=== PATIENT | male | born 1955 | race Caucasian/White ===

== ENCOUNTER 2025-01-14 02:19 | Emergency (ER) | payer MEDICARE, OTHER, SELFPAY ==
--- OUTSIDE RECORDS SUMMARY | 2025-01-14 02:22 | XMS_ITS | Clinical Summary ---
Author Organization [facility] Address [address] [place] [address] Care Team Providers Care Aerodynamic Consultant Name Role Phone Elsewhere, Pcp Primary Care Provider Unavailabl e Source Comments Patient records contain information from all sites at [facility]. For routine questions regarding patient records, call [phone] during business hours, M-F 8:00 AM - 5:00 PM Central Time. Record requests for emergency care only can be directed to [phone] at any time.[facility] Allergies Active Allergy Reactions Criticality Noted Date Comments Pollen Extracts Cough 09/06/2022 Medications * This document contains information received from the source organization and may not represent a complete record from that organization. lisinopriL (PRINIVIL,ZESTR IL) 20 mg tablet Take 20 mg by mouth daily. 3 Active metoprolol succinate (TOPROL-XL) 50 mg 24 hr tablet Take 50 mg by mouth at bedtime. 3 Active hydroCHLOROthia zide (HYDRODIURIL) 12.5 mg tablet Take 12.5 mg by mouth daily. 3 Active atorvastatin (LIPITOR) 20 mg tablet Take 20 mg by mouth at bedtime. 3 Active cetirizine (ZyrTEC) 10 mg tablet Take 10 mg by mouth daily. 3 Active cholecalciferol (VITAMIN D3) 25 mcg (1,000 Unit) capsule Take 1,000 Units by mouth daily. 5 Active DOCOSAHEXAENOIC ACID ORAL Take 1 capsule by mouth daily. 7 Active diphenhydrAMINE -acetaminophen (TYLENOL PM) 25-500 mg per tablet Take 1 tablet by mouth at bedtime. 3 Active co-enzyme Q-10 (CO Q-10) 100 mg capsule Take 100 mg by mouth daily. 0 Active resveratroL 50 mg capsule Take 50 mg by mouth daily. 0 Active multivitamin tablet Take 1 tablet by mouth daily. [address] Active aspirin [address] tablet Take 81 mg by mouth daily. 1 Active acetaminophen (TYLENOL) 500 mg tablet Take 2 tablets (1,000 mg total) by mouth every 6 (six) hours as needed for pain. 3 Active tadalafiL (CIALIS) 5 mg tablet TAKE 1-4 TABLETS BY MOUTH DAILY. TAKE ONE TABLET ONCE DAILY WITH AN ADDITIONAL 1-3 TABLETS NEEDED FOR ERECTILE FUNCTION. NO MORE THAN 4 TABLETS IN 24HRS. 330 tablet 4 Active Hospital, Clinic, or Other Facility Administered Medication Ordered Dose Route Frequency Start Date End Date Status lidocaine 10 mg/mL (1 %) injection 30 mL (XYLOCAINE) 30 mL inj Once 12/02/2022 Active Active Problems Problem Noted Date Diagnosed Date Hypertension Essential Primary 02/16/2023 Hyperlipidemia 02/16/2023 Atrial Fibrillation Personal History 02/16/2023 Aortic Ectasia 02/16/2023 Catheter Ablation For Conduction Pathway Status Post 02/16/2023 Obstructive Sleep Apnea Adult 02/16/2023 Personal History Of Infectio us And Parasitic Disease (COVID-19) 02/16/2023 Obesity Body Mass Index 30-39.9 Adult 02/16/2023 Primary Malignant Neoplasm Of Prostate 3 Family History Medical History Relation Name Comments Hypertension Brother Jc Wong Coronary artery disease Father Arcadio Wong Lung cancer Father Arcadio Wong heavy smoker Hypertension Mother Shira Wong Hypertension Sister Trish Calle Relation Name Status Comments Brother Jc Wong Father Arcadio Wong Mother Shira Wong Sister Trish Calle Social History Tobacco Use Types Packs/Day Years Used Date Smoking Tobacco: Never Passive Smoke Exposure: Never Smokeless Tobacco: Never Alcohol Use Standard Drinks/Week Comments Not Currently 2 (1 standard drink = 0.6 oz pur e alcohol) Hunger Vital Sign Answer Date Recorded Within the past 12 months, y ou worried that your food would run out before you got the money to buy more. Never true 01/02/20 23 Within the past 12 months, t he food you bought just didn't last and you didn't have money to get more. Never true 01/01/2023 PRAPARE - Transportation Answer Date Re corded In the past 12 months, has l ack of transportation kept you from medical appointments or from getting medications? No 12/16 In the past 12 months, has l ack of transportation kept you from meetings, work, or from getting things needed for daily living? No 01/01/2023 Housing Stability Answer Date Recorded What is your living situation today? I have a [facility] place to live 01/01/2023 Sex and Gender Information Value Date Recorded Sex Assigned at Male 10/11/2022 5:52 PM CDT Legal Sex Male 5:12 PM CDT Gender Identity Male 10/11/2022 5:52 PM CDT Sexual Orientation Straight 10/11/2022 5: 52 PM CDT Last Filed Vital Signs Vital Sign Reading Time Taken Comments Blood Pressure 108/70 02/18/2023 11:26 AM CDT Pulse 65 02/18/2023 11:26 AM CDT Temperature 36.9 C (98.4 F) 02/18/2023 11:26 AM CDT Respiratory Rate 15 02/18/2023 11:26 AM CDT Oxygen Saturation 98% 02/18/2023 11:26 AM CDT Inhaled Oxygen Concentration - - Weight 107 kg (235 lb 0.2 oz) 02/17/2023 10:46 P M CDT Height 179 cm (5' 10.47) 02/17/2023 10:16 AM CD T Body Mass Index 33.27 02/17/2023 10:16 AM CDT Plan of Treatment Health Maintenance Due Date Last Done Comments CT Colonography 1955 Cologuard 1955 FIT 1955 Hepatitis C Screening 1955 DTaP,Tdap,and Td Vaccines (2 - Td or Tdap) 01/05/2022 01/06/2012, 12/09/2002 Office Visit for Blood Pressure Check / Re-check 02/17/2024 02/16/2023 Depression Screening (Annual PHQ-2) 04/17/2024 Fall Risk Screen (Annual) 04/17/2024 Creatinine Level (Kidney Function Test) 12/05/2024 12/06/2023, 02/18/2023, 02/16/2023, Additional history exists Potassium Level 12/05/2024 12/06/2023, 0 07/2022, 02/16/2023, Additional history exists Sodium Level 12/05/2024 12/06/2023, 07/2022, 02/16/2023, Additional history exists COVID-19 Vaccine ( season) 2024 01/07/2022, 02/12/2021, 07/25/2020, Additional history exists Influenza Vaccine (#1) 2024 , 02/12/2021, 02/03/2020, Additional history exists Fasting Glucose for Diabetes Screening 12/05/2026 12/06/2023, 02/18/2023, 02/16/2023, Additional history exists Lipid (Cholesterol) Screening 12/05/2028 12/06/2023, 08/25/2022, 08/09/2021, Additional history exists Colonoscopy 02/05/2034 02/06/2024, 04/06/2018 Colorectal Cancer Screening 02/05/2034 Zoster Vaccines Completed 11/20/2019, 05/2018, 11/05/2010 Pneumococcal vaccine (50+ years) Completed 08/26/2022 IPV Vaccines Aged Out No longer eligi ble based on patient's age to complete this topic Medical Devices Implanted Type Area Metal Sorter Device Identifier Shelf Expiration Date Model / Serial / Lot Orquidea Morales [id number] Implanted:Qty : 1 on 02/17/2023 by Coy Vargas M.D. at [facility] [employer] e.g. pins/screws/ rods [employer] [facility] [id number] 11/21/2024 [id number] / / [id number] Orquidea Morales [id number] Implanted:Qty : 1 on 02/17/2023 by Coy Vargas M.D. at [facility] [employer] e.g. pins/screws/ rods [employer] [id number] 11/21/2024 [id number] / / [id number] Clp Hmol Plmr Lg - [id number] Implanted:Qty : 1 on 02/17/2023 by Coy Vargas M.D. at [facility] [employer] e.g. pins/screws/ rods [employer] [id number] 05/31/2027 [id number] / / [id number] Clp Hmol Plmr Lg - [id number] Implanted:Qty : 1 on 02/17/2023 by Coy Vargas M.D. at [facility] [employer] e.g. pins/screws/ rods [employer] [id number] 05/31/2027 [id number] / / [id number] Clp Hmol Plmr Lg - [id number] Implanted:Qty : 1 on 02/17/2023 by Coy Vargas M.D. at [facility] [employer] e.g. pins/screws/ rods [employer] [id number] 05/31/2027 [id number] / / [id number] Clp Hmol Plmr Lg - [id number] Implanted:Qty : 1 on 02/17/2023 by Coy Vargas M.D. at [facility] [employer]. pins/screws/ rods [employer] [id number] 05/16/2027 [id number] / / [id number] Clp Hmol Plmr Lg - [id number] Implanted:Qty : 1 on 02/17/2023 by Coy Vargas M.D. at [facility] [employer] e.g. pins/screws/ rods [employer] [id number] 03/29/2027 [id number] / / [id number] Clp Hmol Plmr Lg - [id number] Implanted:Qty : 1 on 02/17/2023 by Coy Vargas M.D. at [facility] [employer] e.g. pins/screws/ rods [employer] [id number] 05/24/2027 [id number] / / [id number] Procedures Procedure Name Priority Date/Time Associated Diagnosis Comments BASIC METABOLIC PANEL, S/P Routine 02/18/2023 12:35 AM CDT from Last 3 Months or Most Recently Relevant to Health Maintenance Results * (ABNORMAL) Basic Metabolic Panel (02/18/2023 12:35 AM CDT) Potassium, S 4.4 3.6 - 5.2 mmol/L 02/18/2023 1:32 AM CDT DTL Sodium, S 139 135 - 145 mmol/L 02/18/2023 1:32 AM CDT DTL Chloride, S 101 98 - 107 mmol/L 02/18/2023 1:32 AM CDT DTL Bicarbonate, S 24 22 - 29 mmol/L 02/18/2023 1:32 AM CDT DTL Anion Gap 14 7 - 15 02/18/2023 1:32 AM CDT DTL BUN (Blood Urea Nitrogen), S 18 8 - 24 mg/dL 02/18/2023 1:32 AM CDT DTL Creatinine 1.15 0.74 - 1.35 mg/dL 02/18/2023 1:32 AM CDT DTL Estimated GFR (eGFR) 70 >=60 mL/min/BSA 02/18/2023 1:32 AM CDT DTL Comment: Estimated GFR calculated using the 2020 CKD_EPI creatinine equation. Calcium, Total, S 9.1 8.8 - 10.2 mg/dL 02/18/2023 1:32 AM CDT DTL Glucose, S 194(H) 70 - 140 mg/dL 02/18/2023 1:32 AM CDT DTL Blood (Blood, Venous) 02/18/2023 12:35 AM CDT 02/18/2023 1:16 AM CDT us Sailaja Leslie M.D. LAB BLOOD ADD-ON Final Re sult [facility] [employer] [facility] [address] [place] [address], [facility] DTL [facility] [employer] [facility] [employer] [facility] [address] [place] [address] from Last 3 Months or Most Recently Relevant to Health Maintenance Insurance [employer] MEDICARE Care Teams Aerodynamic Consultant Relationship Specialty Start Date End Date Elsewhere, Pcp PCP - General Internal Medicine 09/06/22
--- OUTSIDE RECORDS SUMMARY | 2025-01-14 02:22 | XMS_ITS | Clinical Summary ---
Author Organization [facility] Address [address] [place] [id number] Care Team Providers Care Integrity Analyst Name Role Phone Rosalba Jordan DO Primary Care Provider [phone] Allergies Active Allergy Reactions Criticality Noted Date Comments Unlisted Allergen (Include Detail In Comments) 02/14/2007 seasonal allergies-eyes water and sneezing Medications MULTIVITAMIN TAB take 1 tablet by oral route once daily with food 0 01/24/20 07 Active cetirizine (ZYRTEC) 10 mg tablet Take 1 tablet by mouth once daily. 0 02/23/20 13 Active cholecalciferol (VITAMIN D-3) 2,000 unit capsule Take 2,000 Units by mouth once every other day. 0 08/09/19 15 Active jeoae-2-qao-epa-d pa-fish oil (OMEGA-3 2100) 1,050-1,200 mg cap capsule Take 1 capsule by mouth once daily. 0 12/17/19 17 Active MEDICAL SUPPLY, MISCELLANEOUS (GRADUATED COMPRESSION STOCKINGS)Indicat ions:Varicose veins of legs For personal use. Length: calf Strength: 16-20mmhg 3 Packet 2 12/17/19 17 Active coenzyme q10 100 mg cap Take 1 capsule by mouth once daily. 0 06/11/19 20 Active resveratrol 50 mg cap Take 50 mg by mouth once daily. 0 08/07/19 20 Active aspirin (ECOTRIN) 81 mg enteric coated tabletIndications :PAF (paroxysmal atrial fibrillation) (HC) Take 1 Tablet (81 mg) by mouth once daily. 0 08/20/19 21 Active diphenhydrAMINE-a cetaminophen 25-500 mg (Tylenol PM Extra Strength) 25-500 mg tablet Take 1 Tablet by mouth at bedtime if needed. Max acetaminophen dose: 4000mg in 24 hrs. 0 07/06/19 Active medication order composerIndicatio ns:Chronic constipation Calm magnesium 350mg per serving. Taking as needed for constipation. 12/06/19 Active lisinopriL 20 mg tabletIndications :Essential hypertension with goal blood pressure less than 130/80 Take 1 Tablet (20 mg) by mouth once daily. 90 Tablet 10/15/19 25 Active hydroCHLOROthiazi de 12.5 mg tabletIndications :Essential hypertension with goal blood pressure less than 130/80 Take 1 Tablet (12.5 mg) by mouth once daily. 90 Tablet 10/15/19 25 Active atorvastatin 20 mg tabletIndications :Essential hypertension with goal blood pressure less than 130/80 Take 1 Tablet (20 mg) by mouth once daily. 90 Tablet 10/15/19 25 Active metoprolol succinate 50 mg sustained-release tabletIndications :Atrial fibrillation with rapid ventricular response (HC) Take 1 Tablet (50 mg) by mouth once daily. 90 Tablet 10/15/19 Active CPAPIndications:O SA (obstructive sleep apnea) CPAP machine for home use at pressure 7-11 cmw, starting pressure 6 (can increase if needed)nasal mask x1/3month with nasal cushion x2/mo 1 Each 10/15/19 25 Active tirzepatide (weight loss) (ZEPBOUND) 2.5 mg/0.5 mL subcutaneous vialIndications:O besity (BMI 30.0-34.9),Severe obstructive sleep apnea Inject 0.5 mL (2.5 mg) subcutaneous once weekly. 4 Each 11/30/19 25 Active tirzepatide (weight loss) (ZEPBOUND) 5 mg/0.5 mL subcutaneous vialIndications:O besity (BMI 30.0-34.9),Severe obstructive sleep apnea Inject 0.5 mL (5 mg) subcutaneous once weekly. 4 Each 11/30/19 25 Active Active Problems Patient Care Coordination No te Formatting of this note migh t be different from the original. HF/Structural/Prevention Research Eligibility Review Date: 04/26/19 Upcoming Visit Location: [x] [facility] [] Outreach Age: 63 y.o. Insurance: [] Medicare [x] Not Medicare [] Uncertain Comments: HF: DNQ Structural: DNQ Prevention: Diabetes: Vesalius:Potential No d/t - statin dose and no inclusion 104 Prominent:No d/t Rhapsody: No recurrent pericarditis Problem Noted Date Diagnosed Date Prostate cancer 12/06/2023 Cancer Staging:Clinical: cN0, cM0, Grade Group: 3 - Signed by Rosalba Jordan DO on 12/06/2023 Paroxysmal A-fib 12/06/2023 CKD (chronic kidney disease) stage 3, GFR 30-59 ml/min 04/24/2019 Obesity (BMI 30-39.9) 04/24/2019 MARIALUISA 10/05/2015 AHI-47 08/07/2015 Adenomatous colon polyp 06/25/2012 Overview (04/18/2018): Colonoscopy 06/2012 polyp repeat in 5 years Colonoscopy 03/2018 polyps, repeat in 5 years Unspecified essential hypertension 01/23/2007 Allergic rhinitis, cause unspecified 01/23/2007 Resolved Problems Problem Noted Date Diagnosed Date Resolved Date Unspecified essential hypertension 11/05/2010 11/05/2010 Encounters Date Type Department Care Team Description 12/23/2024 Refill [facility] [address] [place] [address] Rosalba Jordan DO Refill Request (Zepbound) 11/29/2024 8:10 AM CDT Office Visit [facility] [address] [place] [address] Rosalba Jordan DO Weight (talk about weight loss medication) 11/29/2024 Travel 10/14/2024 4:00 PM CDT Office Visit [facility] [address] [place] [address] Jeff Lomeli MD Sleep Follow-up 10/14/2024 8:10 AM CDT Office Visit [facility] [address] [place] [address] Rosalba Jordan DO Physical (would like to talk about bp readings, brought home data; would like to talk about knee injections; 2nd toe on right food feels it may have arthritis/neuropathy ) 10/14/2024 Travel from Last 3 Months Immunizations Immunization Administration Dates Next Due COVID-19 vaccine ([employer] 30mcg/0.3mL) PF, MDV 02/12/2021,07/25/2020,07/04/2020 Influenza RIV4 (Age 18+ Year s) PRESERV FREE 02/03/2020 Influenza Virus, Unspecified 12/29/2008 Influenza, High-dose Inactivated 01/12/2024 Influenza, High-dose Quadriv alent Inactivated 02/12/2022 Influenza, IIV3 (Age >=3 years) 02/22/2013,01/05,01/23/2007 Influenza, IIV4 02/12/2021, 9,01/07/2018,2015 Influenza, IIV4 (=>6mos) MDV 12/16/2016 Pneumococcal Conj 20-valent (Prevnar 20) 08/26/2022 Td (Age >=7 Years) 09/07/2004,12/09/2002 Tdap 01/06/2012 Zoster (Shingrix-RZV, recombinant) 11/20/2019, Zoster (Zostavax-ZVL, live) 11/05/2010 Family History Medical History Relation Name Comments Hypertension Brother 3 Hypertension Brother 4 Good Health Daughter 2 Cancer Father lung Diabetes Mother Shira Heart Disease Mother Shira chf Hypertension Mother Shira Hypertension Sister 3 Hypertension Sister 4 Thyroid Disease Sister 5 Other Son 2 allegies Relation Name Status Comments Brother 1 Alive Brother 2 Alive Brother 3 Brother 4 Daughter 1 Alive Daughter 2 Father (Age 55) lung ca Mother Shira Alive Sister 1 Alive Sister 2 Alive Sister 3 Sister 4 Sister 5 Son 1 Alive Son 2 Social History Tobacco Use Types Packs/Day Years Used Date Smoking Tobacco: Never Smokeless Tobacco: Never Tobacco Cessation:Counseling Given: Yes Alcohol Use Standard Drinks/Week Comments Yes 1 (1 standard drink = 0.6 oz pur e alcohol) rare PHQ-2 Answer Date Recorded PHQ-2 TOTAL SCORE 0 12/06/2023 Social Connections Answer Date Recorded Do you often feel lonely or isolated from those around you? 0 10/11/2024 Financial Resource Strain Answer Date R ecorded Difficulty of Paying Living Expenses 3 10/11/2024 Difficulty of Paying Living Expenses Not on file 10/11/2024 Food Insecurity Answer Date Recorded Do you worry your food will run out before you are able to buy more? 1 10/11/2024 Transportation Needs Answer Date Record ed Does lack of transportation keep you from medica l appointments? 1 10/11/2024 Does lack of transportation keep you from work, meetings or getting things that you need? 1 10/11/2024 Housing Stability Answer Date Recorded What is your housing situation today? 1 10/11/2024 Utilities Answer Date Recorded Do you have trouble paying f or utilities (for example, heat, electricity, water, phone)? 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 Not on file Not on file Obstetrics History Last Filed Vital Signs Vital Sign Reading Time Taken Comments Blood Pressure 123/81 11/29/2024 8:10 AM CDT Pulse 50 11/29/2024 8:10 AM CDT Temperature 36.6 C (97.8 F) 02/06/2024 11:12 AM CDT Respiratory Rate 18 02/06/2024 2:45 PM CDT Oxygen Saturation 96% 11/29/2024 8:10 AM CDT Inhaled Oxygen Concentration - - Weight 111.6 kg (246 lb) 11/29/2024 8:10 AM CDT Height 180.5 cm (5' 11.06) 11/29/2024 8:10 AM C DT Body Mass Index 34.25 11/29/2024 8:10 AM CDT Plan of Treatment Health Maintenance Due Date Last Done Comments RSV vaccine for adults or (1 - Risk 60-74 years 1-dose series) 2016 Tetanus booster 01/05/2022 01/06/2012, 08/16, 12/09/2002 Depression screening for age 12+ 12/05/2024 12/06/2023, 12/06/2023, 08/26/2022, Additional history exists Medicare Wellness for age 65+ 12/06/2024 12/06/2023, 08/26/2022 COVID-19 vaccine series (6 - Pfizer risk season) 2024 01/12/2024, 01/07/2022, 02/12/2021, Additional history exists Influenza Vaccine (#1) 2024 , 02/12/2021, 02/03/2020, Additional history exists BMI (ht and wt on same day) for age 18+ 11/29/2025 11/29/2024, 10/14/2024, 10/14/2024, Additional history exists Colonoscopy through age 75 02/05/202902/05, 04/06/2018, 04/06/2018, Additional history exists Lipids for age 45-75 10/14/2029 10/14/2024, 12/06/2023, 08/25/2022, Additional history exists Hepatitis C screening for age 18-79 Completed 08/19/2014 Zoster (shingles) series for age 50+ Completed 11/20/2019, 03/18/2019, 11/05/2010 Pneumococcal series for age 50+ Completed 08/26/2022 Hepatitis B series for 19+ Aged Out N o longer eligible based on patient's age to complete this topic Procedures Procedure Name Priority Date/Time Associated Diagnosis Comments BASIC METABOLIC PANEL Routine 10/14/2024 9:36 AM CDT Essential hypertension with goal blood pressure less than 130/80 Atrial fibrillation with rapid ventricular response (HC) LIPID PANEL W REFLEX MEASURED LDL Routine 10/14/2024 9:36 AM CDT Essential hypertension with goal blood pressure less than 130/80 PSA TOTAL Routine 10/14/2024 9:36 AM CDT Prostate cancer (HC) COLONOSCOPY 02/06/2024 1:10 PM CDT ANTI HCV Routine 08/19/2014 7:25 AM CDT Need for hepatitis C screening test from Last 3 Months or Most Recently Relevant to Health Maintenance Results * LIPID PANEL W REFLEX MEASURED LDL (10/14/2024 9:36 AM CDT) CHOLESTEROL, TOTAL 159 <200 mg/dL [email or web address] HDL CHOLESTEROL 55 > OR = 40 mg/dL [email or web address] TRIGLYCERIDES 109 <150 mg/dL [email or web address] LDL-CHOLESTEROL 83 mg/dL (calc) [email or web address] Comment: Reference range: <100 Desirable range <100 mg/dL for primary prevention; <70 mg/dL for patients with CHD or diabetic patients with > or = 2 CHD risk factors. LDL-C is now calculated using the Radha calculation, which is a validated novel method providing better accuracy than the Friedewald equation in the estimation of LDL-C. Todd SS et al. MINI. 2013;310(19): 9861-1184 (http://education.[employer]/faq/YPC400) CHOL/HDLC RATIO 2.9 <5.0 (calc) [email or web address] NON HDL CHOLESTEROL 104 <130 mg/dL (calc) [facility] Comment: For patients with diabetes plus 1 major ASCVD risk factor, treating to a non-HDL-C goal of <100 mg/dL (LDL-C of <70 mg/dL) is considered a therapeutic option. Blood BLOOD SPECIMEN / Unknown 10/14/2024 9:36 AM CDT 10/14/2024 9:37 AM CDT us Rosalba Estevezt DO CHEMISTRY Final Resul t [facility] [address] [place] [address], [email or web address] [address] [place] [address] * PSA TOTAL (DIAG OR SCREEN) (10/14/2024 9:36 AM CDT) PSA, TOTAL 0.15 < OR = 4.00 ng/mL [facility] Comment: The total PSA value from this assay system is standardized against the WHO standard. The test result will be approximately 20% lower when compared to the equimolar-standardized total PSA ([place]). Comparison of serial PSA results should be interpreted with this fact in mind. This test was performed using the Siemens chemiluminescent method. Values obtained from different assay methods cannot be used interchangeably. PSA levels, regardless of value, should not be interpreted as absolute evidence of the presence or absence of disease. Blood BLOOD SPECIMEN / Unknown 10/14/2024 9:36 AM CDT 10/14/2024 9:37 AM CDT us Rosalba Jordan DO CHEMISTRY Final Resul t [employer] [facility] [address] [place] [address], [email or web address] [address] [place] [address] * BASIC METABOLIC PANEL (10/14/2024 9:36 AM CDT) Pathologist [facility] GLUCOSE 89 65 - 99 mg/dL [facility] Comment: Fasting reference interval UREA NITROGEN (BUN) 22 7 - 25 mg/dL [facility] CREATININE 1.05 0.70 - 1.35 mg/dL [facility] EGFR 78 > OR = 60 mL/min/1. 73m2 [facility] BUN/CREATININE RATIO SEE NOTE: 6 - 22 (calc) [facility] Comment: Not Reported: BUN and Creatinine are within reference range. SODIUM 141 135 - 146 mmol/L [facility] POTASSIUM 4.4 3.5 - 5.3 mmol/L [facility] CHLORIDE 104 98 - 110 mmol/L [facility] CARBON DIOXIDE 29 20 - 32 mmol/L [facility] ELECTROLYTE BALANCE 8 7 - 17 mmol/L (calc) [facility] CALCIUM 9.6 8.6 - 10.3 mg/dL [facility] Blood BLOOD SPECIMEN / Unknown 10/14/2024 9:36 AM CDT 10/14/2024 9:37 AM CDT us Rosalba Jordan DO CHEMISTRY Final Resul t [facility] [address] [place] [address], [place] [phone] [facility] [address] [place] [address] * COLONOSCOPY (02/06/2024 1:10 PM CDT) 02/06/2024 1:10 PM CDT Narrative Transcriptions Deena Buck DO - 02/09/2024 4:18 PM CDT Patient Name: Bijan Wong Procedure Date: 02/06/2024 Gender: Male Date of : 1955 Admit Type: Ambulatory Procedure: Colonoscopy Proceduralist: Deena Buck MD Referring MD: Rosalba Jordan Indications/Pre-Op Diagnosis: High risk colon cancer surveillance:Personal history of colonic polyps, Incidental -Change in bowel habits Medications: Propofol per Anesthesia, MonitoredAnesthesia Care Procedure Description: The patient had risks, benefits and alternatives explained to andgave informed consent. The patient had a stable cardiopulmonary status and judged an adequate candidate for conscious sedation. The endoscope [id number] was passed through the anus andadvanced to the cecum, identified by appendiceal orifice and ileocecal valve.The colonoscopy was performed without difficulty. The patient toleratedthe procedure well. The quality of the bowel preparation was good. The ileocecal valve, appendiceal orifice, and rectum were photographed. Complications: No immediate complications. Estimated Blood Loss & Specimen: Estimated blood loss was minimal. Specimen collected - Yes and sent to Laboratory Findings: The perianal and digital rectal examinations were normal. Pertinent negatives include normal sphincter tone. A 5 mm polyp was found in the cecum. The polyp was sessile. The polyp was removed with a hot biopsy forceps. Resection and retrieval were complete. Verification of patient identification for the specimen was done. Estimated blood loss was minimal. Two sessile polyps were found in the sigmoid colon. The polyps were 2to 8 mm in size. These polyps were removed with a piecemeal techniqueusing a hot biopsy forceps. Resection and retrieval were complete. Verification of patient identification for the specimen was done. Estimated blood loss was minimal. Non-bleeding internal hemorrhoids were found during retroflexion and during endoscopy. The hemorrhoids were medium-sized and Grade II (internal hemorrhoids that prolapse but reduce spontaneously). The exam was otherwise without abnormality on direct and retroflexion views. Impressions/Post-Op Diagnosis: - One 5 mm polyp in the cecum, removed with a hot biopsy forceps. Resected and retrieved. - Two 2 to 8 mm polyps in the sigmoid colon, removed piecemeal usinga hot biopsy forceps. Resected and retrieved. - Non-bleeding internal hemorrhoids. - The examination was otherwise normal on direct and retroflexionviews. Recommendation: - Patient has a contact number available for emergencies. The signsand symptoms of potential delayed complications were discussed with the patient. Return to normal activities tomorrow. Written discharge instructions were provided to the patient. - Discharge patient to home (ambulatory). - Resume previous diet. - Continue present medications. - Await pathology results. - Repeat colonoscopy in 5 years for surveillance based on pathology results. Deena Buck MD 02/09/2024 4:18:32 PM This report has been signed electronically. Note Initiated On: 02/06/2024 1:10 PM Deena Buck DO PROCEDURE ORD Final Res ult * ANTI HCV [84896.2] (08/19/2014 7:25 AM CDT) HEPATITIS C ANTIBODY Non-Reacti ve Non-Reacti ve 08/19/2014 4:27 PM CDT [facility] Blood specimen (specimen) BLOOD SPECIMEN / Unknown Venipuncture / Unknown 08/19/2014 7:25 AM CDT 08/19/2014 7:25 AM CDT Narrative [facility] - 08/19/2014 4:27 PM CDT Antibodies to HCV not detected; does not exclude the possibility of exposure to HCV. Rosalba Jordan DO SEND OUTS Final Resul t [facility] [address] [place] [address], from Last 3 Months or Most Recently Relevant to Health Maintenance Insurance MEDICA PRIME SOLUTION HB [id number] MR PB ONLY MEDICARE PART B HB ONLY MEDICARE PART A HB ONLY Advance Directives * Full Code (Latest Code Status on File) Date Activated Date Inactivated Comments 02/06/2024 10:58 AM 02/06/2024 5:03 PM Question Answer Comments Code Status Discussion: Discussed * Full Code Date Activated Date Inactivated Comments 09/02/2019 10:41 AM 09/03/2019 1:47 PM Question Answer Comments Code Status Discussion: Not Discussed * Full Code Date Activated Date Inactivated Comments 07/03/2013 7:44 AM 07/03/2013 12:13 PM Care Teams Integrity Analyst Relationship Specialty Start Date End Date Rosalba Jordan DO [address] [place] [address] PCP - General Family Practice 06/22/12
[2025-01-14 02:24] VITALS: BP 155/92; PULSE 104; RESP 18; O2SAT 93; BMI 33.6
[2025-01-14 03:58] VITALS: BP 141/90; PULSE 75; RESP 18
--- NOTE | 2025-01-14 04:31 | ED.GENADULT ---
HPI - General Adult General Chief complaint: Hypertension Stated complaint: high blood pressure Time Seen by Provider: 01/14/25 02:52 Source: patient Mode of arrival: ambulatory Limitations: no limitations History of Present Illness HPI narrative: 61-year-old male presents to the ED after awakening in the middle of the night with a sensation of rapid heart rate. 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 It did not say specifically that he was in AFib. He does have a notable history of AFib and is status post ablation. Is typically known to be in sinus rhythm, not anticoagulated. He reports that the episode lasted a few minutes. There was no shortness of breath or chest pain. Is currently asymptomatic with no interventions performed prior to coming to the ED. has been cleared by Cardiology and is followed up with his primary care provider. Does take metoprolol for cardiac management. No recent exercise intolerance. No recent echo. Has had labs within the last few months to double check kidney function, electrolytes, hemoglobin, etc.. No history of thyroid disease, has been tested in the past as part of AFib workup. No recent stress testing. Currently asymptomatic, symptoms lasting less than an hour. Socially is a nonsmoker, no pertinent travel. No recent changes in home medications but he did have a steroid injection in each knee yesterday. No fever or other signs of illness. No recent GI changes. ROS is notable for the sensation of rapid heart with elevation of heart rate at home that has now come down to normal as well. Otherwise denies times 12 systems. Related Data Home Medications ?Medication ?Instructions ?Recorded ?Confirmed atorvastatin 20 mg tablet mg PO 11/21/23 01/13/25 hydrochlorothiazide 12.5 mg tablet mg PO 11/21/23 01/13/25 lisinopril 20 mg tablet mg PO 11/21/23 01/13/25 metoprolol succinate 50 mg mg PO 11/21/23 01/13/25 tablet,extended release 24 hr Previous Rx's ?Medication ?Instructions ?Recorded benzonatate 100 mg capsule 100 mg PO TID PRN cough #30 caps 12/16/24 prednisone 20 mg tablet See Rx Instructions PO QDAY #12 12/16/24 tabs Allergies Allergy/AdvReac Type Severity Reaction Status Date / Time No Known Drug Allergies Allergy Verified 01/14/25 02:29 [facility] Medical History Hypertension ?I10 - Essential (primary) hypertension (ICD-10) Sleep apnea ?G47.30 - Sleep apnea, unspecified (ICD-10) Closed right humeral fracture ?S42.301A - Unspecified fracture of shaft of humerus, right arm, initial encounter for closed fracture (ICD-10) Surgical History H/O prostatectomy ?Z90.79 - Acquired absence of other genital organ(s) (ICD-10) History of shoulder surgery (02/05/09) ?Z98.890 - Other specified postprocedural states (ICD-10) Social History Smoking Status: Never smoker Do you use any of these nicotine containing products: None Second hand tobacco smoke exposure: No How often do you have a drink containing alcohol: monthly or less How many standard drinks containing alcohol do you have on a typical day: 1 or 2 How often do you have six or more drinks on one occasion: Never AUDIT-C Alcohol total score: 1 Non-prescribed substance use: denies use service: No Exam Const: Vital Signs, click to edit/add: Vital Signs - 24 hr 01/14/25 02:24 01/14/25 03:58 Pulse Rate [Pulse Oximeter] 104 H 75 Respiratory Rate 18 18 Blood Pressure [Ri ght Upper Arm] 155/92 H 141/90 H Pulse Oximetry 93 Oxygen Delivery Me thod Room Air Documenting provider has reviewed patient's vital signs: yes Common normals: no apparent distress General appearance: cooperative and well kempt HENMT: Common normals: normocephalic, moist oral mucous membranes and oropharynx normal Head and scalp: normocephalic Face and sinus: normal facial exam Mouth: oral and palatal mucosa normal Eye: Common normals: conjunctivae normal General eye: normal appearance of both eyes Conjunctiva: conjunctiva(e) normal Neck & C-Spine: Common normals: full ROM and no lymphadenopathy General: normal visual inspection Chest: Common normals: inspection of chest normal Resp: Common normals: normal respiratory effort, no use of accessory muscles and clear to auscultation bilaterally Effort & inspection: able to speak in complete sentences Auscultation: clear to auscultation bilaterally Cardio: Common normals: regular rate, regular rhythm, S1 normal heart sound, S2 normal heart sound and no murmurs Rate: regular rate Rhythm: regular rhythm Heart sounds: S1 normal and S2 normal GI: Common normals: Normal to inspection, nondistended, normoactive bowel sounds present, soft to palpation and no hepatosplenomegaly Palpation: soft and no hepatosplenomegaly Extremity: Common normals: normal to inspection and no pedal edema Psych: Appearance: well kempt Attitude: engaged Activity/motor behavior: appropriate eye contact Mood and affect: euthymic mood Insight: insight good Judgement: judgment good Skin: Common normals: no rashes or lesions noted General skin exam: no rashes or lesions noted Course Course ED Course: 69-year-old male with history of AFib presenting with episode of tachycardia, nonsustained at home, now asymptomatic. 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 Blood pressure has returned to normal and patient is not experiencing any neurological changes or other cardiac symptoms at this time. Vitals are reassuring, no hypoxia or tachypnea. Counseled patient on findings overall. EKG is then performed and now reviewed and as expected is appropriate. Patient could have had an episode of sinus tachycardia triggered by it bilateral steroid injections or he could have had an episode of atrial fibrillation. Without a monitor on at the time, it is difficult to tell that he is certainly not in atrial fibrillation right now. Counseled patient on this and I recommended that he have another Holter monitor placed. Rationale reviewed. We are happy to apply this here at [facility] but I discussed the limitations that it may be harder per his primary care doctor to get the results and his cardiology team as well. He would like to have this performed through a line a. I have let him know to call his clinic and have this arranged. He is familiar with this, having done it a few years before. He asked about travel out of town tomorrow, I would prefer that he stay home for tomorrow so he can monitor symptoms, especially if this was set off by the steroid injections, he will take a few days to get out of his system. We reviewed the indications to come into the ED. He should come in certainly if he has chest pain, shortness of breath, any neurological changes. But if he does have another episode of AFib, he really should come in within 6 hours as he may benefit from cardioversion or medication management. He will continue his current medications as prescribed in the interim. We discussed anticoagulation at this time is like further results of the Holter monitor 1st which is certainly reasonable since I do not have any definitive evidence that this was an episode of AFib rather than a tachycardic spell brought on by the steroid injections. Patient remains asymptomatic during my evaluation time in the ED and will follow up with primary care to arrange outpatient Holter. Vital Signs Vital signs: Initial Vital Signs Pulse Rate 104 H 01/14/25 02:24 Pulse Rhythm Regular 01/14/25 02:24 Respiratory Rate 18 01/14/25 02:24 Blood Pressure 155/92 H 01/14/25 02:24 Blood Pressure Mean 113 H 01/14/25 02:24 Blood Pressure Position Sitting 01/14/25 02:24 Pulse Oximetry 93 01/14/25 02:24 Oxygen Delivery Method Room Air 01/14/25 02:24 Vital Signs Pulse Rate 104 H 01/14/25 02:24 Respiratory Rate 18 01/14/25 02:24 Blood Pressure 155/92 H 01/14/25 02:24 Pulse Oximetry 93 01/14/25 02:24 Oxygen Delivery Method Room Air 01/14/25 02:24 Pulse Rate 75 01/14/25 03:58 Respiratory Rate 18 01/14/25 03:58 Blood Pressure 141/90 H 01/14/25 03:58 Pulse Oximetry 93 01/14/25 02:24 Oxygen Delivery Method Room Air 01/14/25 02:24 Medical Decision Making ECG Data Attestation: I personally reviewed and interpreted this ECG as follows: Prior ECG tracings: not available for review Interpretation: Sinus rhythm with a rate of 89. Does have some left ventricular hypertrophy and some mild QRS widening, consistent with his known history of previous cardiac changes. Stable EKG. Discharge Plan Discharge Clinical Impression: Tachycardia Patient Disposition: Home w/ Parent or Adult Condition: Improved Instructions: A-fib (Atrial Fibrillation) (ED) Additional Instructions: As we discussed, I suspect that the episode of rapid heart rate that you had was atrial fibrillation. You did flip back out of that prior to arrival to the emergency room. Things look good here. Alternatively, sometimes the steroid injections that you had can either trigger an episode of rapid AFib in a susceptible person or episode of sinus tachycardia. Either way, your risk of this happening again if it was related to the steroid injections will dissipate over the next 2-3 days. I would recommend you contact her primary care provider and arrange for another Holter monitor. We do provide these here but it can be difficult for your cardiology and primary care teams to access those records. After learning this, you agree that doing this through your primary care team would make more sense. When you call, please tell them the following: You had an episode of rapid heart rate that lasted several minutes overnight, your evaluated in the emergency room. EKG showed sinus rhythm, tachycardia and all symptoms had resolved. We suspect that this was an episode of rapid atrial fibrillation. Together, we elected not to start any blood thinners but do recommend another Holter monitor. 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 Your primary doctor can choose to order this or see you in the office to further discuss. Continue taking your other medications exactly as prescribed. If you have another similar episode, please make sure that you put on her Apple watch and are monitoring her heart rate. This can also help this record so that we may know what was going on more easily. It is common for her blood pressure to be high during those episodes. If you have stroke-like symptoms, chest pain or severe shortness of breath, you should be evaluated in emergency room. Otherwise if the symptoms do not go away within 6 hours, please be evaluated so that we can consider cardioversion or other treatment. Activity Level: No Restrictions Discharge Diet: Regular Prescriptions: No Action prednisone 20 mg tablet See Rx Instructions PO QDAY Qty: 12 0RF Rx Instructions: Take 2 tabs PO QAM x 4 days, then 1 tab PO QAM x 4 days benzonatate 100 mg capsule 100 mg PO TID PRN (Reason: cough) Qty: 30 0RF hydrochlorothiazide 12.5 mg tablet PO Patient Comments: TAKE ONE TABLET BY MOUTH ONCE DAILY lisinopril 20 mg tablet PO Patient Comments: TAKE ONE TABLET BY MOUTH ONCE DAILY metoprolol succinate 50 mg tablet extended release 24 hr PO Patient Comments: TAKE ONE TABLET BY MOUTH ONCE DAILY atorvastatin 20 mg tablet PO Patient Comments: TAKE ONE TABLET BY MOUTH ONCE DAILY Follow Up/Referrals: Rosalba Jordan, [Primary Care Provider, Family Practice] Stand Alone Forms: Work/School Release, [facility] Inst[facility]
== END 2025-01-14 03:59 | disposition home or self-care (01) ==
LOC: ED 03:27
PROVIDERS: Emergency Provider Family Medicine; PCP Family Medicine
DX: R00.0 Tachycardia, unspecified (principal); Z86.79 Personal history of other diseases of the circulatory system
CPT/HCPCS: 99283